=== PATIENT | male | born 1945 | race Caucasian/White ===

== ENCOUNTER 2016-12-23 11:21 | Inpatient (IN) | payer MEDICARE, OTHER ==
[~2016-12-23] VITALS: Ht 195.6 cm; Wt 110.0 kg
[~2016-12-23 11:21] MED LIST: APIX5TAB PO; CELE200C PO; CHOL200024 PO; CYANOCOBALAMIN IM; DILT240C80 PO; FLUT16SP NAS; LEVO100T5 PO; LISI-170 PO; LORA10TA3 PO; MAGNESIUM PO; MIRA50TA PO; OMEGA 3 PO; OMEP40CA6 PO; POTASSIUM PO; TEMA15CA PO; VITA1TAB3 PO; [UNRECOGNIZED DRUG - OTHER] PO
[2016-12-23] MEDS ORDERED: LACTATED RINGERS 1,000 ML IV SCH (11:51)
[2016-12-23] MEDS ORDERED: LIDOCAINE 1%, 2ML SQ PRN (12:00)
[2016-12-23 12:18] VITALS: BP 153/84
[2016-12-23] MEDS ORDERED: BUPIVACAINE/PF 0.5% ONE (12:20)
[2016-12-23] MEDS ORDERED: SCOPOLAMINE PATCH, 1.5MG PATCH.TD72 TD ONE (12:20)
[2016-12-23] MEDS ORDERED: LABETALOL 5MG/ML, 20ML IV PRN (12:30)
[2016-12-23] MEDS ORDERED: OXYcodone 5 MG/5 ML ORAL.SOL UDC PO PRN (12:30)
[2016-12-23] MEDS ORDERED: PROMETHAZINE 25 MG/ML, 1ML IV PRN (12:30)
[2016-12-23] MEDS ORDERED: ONDANSETRON 2MG/ML, 2ML IVPush PRN (12:30)
[2016-12-23] MEDS ORDERED: hydrALAzine 20 MG/ML, 1ML IV PRN (12:30)
[2016-12-23] MEDS ORDERED: ACETAMINOPHEN 325 MG TABLET PO PRN (12:30)
[2016-12-23] MEDS ORDERED: VANCOMYCIN PER PHARMACY MC ONE (13:00)
[2016-12-23 13:04] LABS: BLOOD UREA NITROGEN 18 mg/dL (7-18)
[2016-12-23 13:12] LABS: HEMATOCRIT 47.3 % (39.2-51.8); HEMOGLOBIN 15.1 g/dL (13.7-18.0); WHITE BLOOD COUNT 7.5 x10^3/uL (3.4-10)
[2016-12-23] MEDS ORDERED: FENTANYL PF 500 MCG/10ML ONE (13:16)
[2016-12-23] MEDS ORDERED: HYDROmorphone 1 MG/ML, 1ML ONE ×3 (13:16→16:29)
[2016-12-23] MEDS ORDERED: VANCOMYCIN 1,000 MG ONE (13:17)
[2016-12-23] MEDS ORDERED: ROPIvacaine/PF 0.2%, 20 ML ONE (13:17)
[2016-12-23] MEDS ORDERED: KETOROLAC 60 MG/2 ML ONE (13:17)
[2016-12-23] MEDS ORDERED: TRANEXAMIC ACID 100 MG/ML, 10ML ONE (13:17)
[2016-12-23] MEDS ORDERED: EPINEPHRINE 1 MG/ML, 1ML ONE (13:18)
[2016-12-23] MEDS ORDERED: VANCOMYCIN 2,000 MG in SODIUM CHLORIDE 0.9% 500 ML IV ONE (13:30)
[2016-12-23] MEDS ORDERED: ONDANSETRON 2MG/ML, 2ML ONE (13:47)
[2016-12-23] MEDS ORDERED: CEFAZOLIN 1,000 MG ONE (13:47)
[2016-12-23] MEDS ORDERED: ROCURONIUM 10 MG/ML ONE (13:47)
[2016-12-23] MEDS ORDERED: SUCCINYLCHOLINE 20 MG/ML, 10ML ONE (13:47)
[2016-12-23] MEDS ORDERED: PROPOFOL 10 MG/ML, 20ML ONE (13:47)
[2016-12-23] MEDS ORDERED: FENTANYL PF 100 MCG/2ML ONE (16:15)
[2016-12-23] MEDS ORDERED: OXYcodone 5 MG/5 ML ORAL.SOL UDC ONE (16:16)
[2016-12-23] MEDS: FENTANYL PF 100 MCG/2ML IV PRN ×2 (16:20→16:30)
[2016-12-23] MEDS: HYDROmorphone 1 MG/ML, 1ML IV PRN ×3 (16:25→16:52)
[2016-12-23] MEDS ORDERED: HYDROmorphone 1 MG/ML, 1ML IV PRN (16:30)
[2016-12-23] MEDS ORDERED: DIPHENHYDRAMINE 25 MG CAPSULE PO PRN (16:30)
[2016-12-23] MEDS ORDERED: DIAZEPAM 5 MG TABLET PO PRN (16:30)
[2016-12-23] MEDS ORDERED: PROMETHAZINE 12.5 MG SUPP PR PRN (16:30)
[2016-12-23] MEDS ORDERED: SENNA/DOCUSATE TABLET PO PRN (16:30)
[2016-12-23] MEDS ORDERED: ACETAMINOPHEN 650 MG/20.3 ML UDC PO PRN (16:30)
[2016-12-23] MEDS ORDERED: BISACODYL 10 MG SUPP PR PRN (16:30)
[2016-12-23] MEDS: TRANEXAMIC ACID 1,000 MG in SODIUM CHLORIDE 0.9% 100 ML IVPB SCH (16:30)
[2016-12-23] MEDS ORDERED: ONDANSETRON 2MG/ML, 2ML IV PRN (16:30)
[2016-12-23] MEDS ORDERED: ONDANSETRON 4 MG TABLET PO PRN (16:30)
[2016-12-23] MEDS ORDERED: HYDROcodone/APAP 5/325 TABLET PO PRN (16:30)
[2016-12-23] MEDS ORDERED: LORazepam 1MG TABLET PO PRN (16:30)
[2016-12-23] MEDS ORDERED: SCOPOLAMINE PATCH, 1.5MG PATCH.TD72 TD SCH (18:04)
[2016-12-23] MEDS: D5%-0.45% NACL 1,000 ML IV SCH (18:34)
[2016-12-23] MEDS: OMEGA-3/FISH OIL CAPSULE PO SCH (21:15)
[2016-12-23] MEDS: DOCUSATE 100 MG CAPSULE PO SCH (21:15)
[2016-12-23] MEDS: CEFAZOLIN PMX 1GM/50ML 50 ML IVPB SCH (22:01)
[2016-12-23] MEDS: ZOLPIDEM 5MG TABLET PO PRN (22:01)
[2016-12-23 23:38] VITALS: BP 106/60
[2016-12-24] MEDS: TRANEXAMIC ACID 1,000 MG in SODIUM CHLORIDE 0.9% 100 ML IVPB SCH ×3 (00:29→18:44)
[2016-12-24] MEDS: D5%-0.45% NACL 1,000 ML IV SCH ×3 (04:05→20:45)
[2016-12-24 04:15] VITALS: BP 123/70
[2016-12-24 05:19] LABS: HEMATOCRIT 37.4 % (39.2-51.8); HEMOGLOBIN 12.4 g/dL (13.7-18.0)
[2016-12-24] MEDS: CEFAZOLIN PMX 1GM/50ML 50 ML IVPB SCH (06:03)
[2016-12-24] MEDS: ASPIRIN 81 MG TABLET EC PO SCH ×2 (06:03→18:18)
[2016-12-24] MEDS: LEVOTHYROXINE 100 MCG TABLET PO SCH (06:03)
[2016-12-24 08:13] VITALS: BP 143/73
[2016-12-24] MEDS ORDERED: DILTIAZEM 240 MG CAP.ER.24H PO SCH (09:00)
[2016-12-24] MEDS: OMEGA-3/FISH OIL CAPSULE PO SCH (09:53)
[2016-12-24] MEDS: OXYcodone IR 5MG TABLET PO PRN ×4 (10:03→22:13)
[2016-12-24] MEDS: MULTIVITAMIN 1 TABLET PO SCH (10:05)
[2016-12-24] MEDS: OMEPRAZOLE 20 MG CAPSULE.DR PO SCH (10:05)
[2016-12-24] MEDS: TAMSULOSIN 0.4 MG CAP.ER.24H PO SCH (10:05)
[2016-12-24] MEDS: POTASSIUM CHLORIDE 8 MEQ TABLET.ER PO SCH (10:06)
[2016-12-24] MEDS: MAGNESIUM OXIDE 400 MG TABLET PO SCH (10:06)
[2016-12-24] MEDS: DOCUSATE 100 MG CAPSULE PO SCH ×2 (10:06→20:43)
[2016-12-24] MEDS: CHOLECALCIFEROL 1,000 UNIT TABLET PO SCH (10:06)
[2016-12-24] MEDS: LORATADINE 10 MG TABLET PO SCH (10:06)
[2016-12-24] MEDS: LOSARTAN 25MG TABLET PO SCH (12:37)
[2016-12-24 14:14] VITALS: BP 130/55
[2016-12-24] MEDS ORDERED: ASPIRIN 81 MG TABLET EC PO SCH (18:00)
[2016-12-24 20:09] VITALS: BP 138/63
[2016-12-24] MEDS: DILTIAZEM 240 MG CAP.ER.24H PO SCH (20:43)
[2016-12-24] MEDS: ZOLPIDEM 5MG TABLET PO PRN (22:13)
[2016-12-25 02:07] VITALS: BP 121/64
[2016-12-25] MEDS: OXYcodone IR 5MG TABLET PO PRN ×4 (02:18→23:01)
[2016-12-25 04:42] LABS: HEMATOCRIT 35.7 % (39.2-51.8)
[2016-12-25] MEDS: LEVOTHYROXINE 100 MCG TABLET PO SCH ×2 (05:28→09:00)
[2016-12-25] MEDS: ASPIRIN 81 MG TABLET EC PO SCH ×2 (05:28→18:24)
[2016-12-25] MEDS: D5%-0.45% NACL 1,000 ML IV SCH ×2 (08:07→18:07)
[2016-12-25 08:48] VITALS: BP 109/53
[2016-12-25] MEDS: LORATADINE 10 MG TABLET PO SCH ×2 (09:00→09:10)
[2016-12-25] MEDS: OMEPRAZOLE 20 MG CAPSULE.DR PO SCH ×2 (09:00→09:08)
[2016-12-25] MEDS ORDERED: DILTIAZEM 240 MG CAP.ER.24H PO SCH (09:00)
[2016-12-25] MEDS: TEMPLATE NON-FORMULARY MED. (Mirabegron** (Myrbetriq**) 25 MG) PO SCH (09:00)
[2016-12-25] MEDS: DOCUSATE 100 MG CAPSULE PO SCH ×2 (09:09→20:35)
[2016-12-25] MEDS: TAMSULOSIN 0.4 MG CAP.ER.24H PO SCH (09:09)
[2016-12-25] MEDS: CHOLECALCIFEROL 1,000 UNIT TABLET PO SCH (09:09)
[2016-12-25] MEDS: MAGNESIUM OXIDE 400 MG TABLET PO SCH (09:09)
[2016-12-25] MEDS: LOSARTAN 25MG TABLET PO SCH (09:10)
[2016-12-25] MEDS: POTASSIUM CHLORIDE 8 MEQ TABLET.ER PO SCH (09:10)
[2016-12-25] MEDS: MULTIVITAMIN 1 TABLET PO SCH (09:10)
[2016-12-25 13:27] VITALS: BP 106/56
[2016-12-25] MEDS: MAGNESIUM HYDROXIDE 8%, 30ML UDC PO PRN (18:24)
[2016-12-25 19:01] VITALS: BP_SYST 135; BP_SYST 155; BP_DIAS 64; BP_DIAS 67
[2016-12-25] MEDS: DILTIAZEM 240 MG CAP.ER.24H PO SCH (20:35)
[2016-12-25] MEDS: ZOLPIDEM 5MG TABLET PO PRN (20:35)
[2016-12-26 02:32] VITALS: BP 136/58
[2016-12-26] MEDS: OXYcodone IR 5MG TABLET PO PRN ×2 (03:53→08:22)
[2016-12-26 05:00] LABS: HEMATOCRIT 34.6 % (39.2-51.8); HEMOGLOBIN 11.6 g/dL (13.7-18.0)
[2016-12-26] MEDS: LEVOTHYROXINE 100 MCG TABLET PO SCH ×2 (05:52→09:00)
[2016-12-26] MEDS: ASPIRIN 81 MG TABLET EC PO SCH (05:52)
[2016-12-26 07:15] VITALS: BP 122/51
[2016-12-26] MEDS: MAGNESIUM HYDROXIDE 8%, 30ML UDC PO PRN (08:21)
[2016-12-26] MEDS: POTASSIUM CHLORIDE 8 MEQ TABLET.ER PO SCH (08:24)
[2016-12-26] MEDS: LORATADINE 10 MG TABLET PO SCH ×2 (08:24→09:00)
[2016-12-26] MEDS: DOCUSATE 100 MG CAPSULE PO SCH (08:24)
[2016-12-26] MEDS: CHOLECALCIFEROL 1,000 UNIT TABLET PO SCH (08:24)
[2016-12-26] MEDS: OMEPRAZOLE 20 MG CAPSULE.DR PO SCH ×2 (08:24→09:00)
[2016-12-26] MEDS: TAMSULOSIN 0.4 MG CAP.ER.24H PO SCH (08:24)
[2016-12-26] MEDS: MAGNESIUM OXIDE 400 MG TABLET PO SCH (08:24)
[2016-12-26] MEDS: MULTIVITAMIN 1 TABLET PO SCH (08:24)
[2016-12-26] MEDS: LOSARTAN 25MG TABLET PO SCH (08:25)
[2016-12-26] MEDS ORDERED: OXYC5TAB3 PO (08:29)
[2016-12-26] MEDS ORDERED: ZOLP-413 PO (08:30)
[2016-12-26] MEDS ORDERED: ACET-1600 PO (08:31)
[2016-12-26] MEDS: TEMPLATE NON-FORMULARY MED. (Mirabegron** (Myrbetriq**) 25 MG) PO SCH (09:00)
[2016-12-26] MEDS ORDERED: OXYC5CAP2 PO (09:43)
[2016-12-26] MEDS ORDERED: ZOLP5TAB PO (09:45)
[2016-12-26 10:11] VITALS: BP 106/46
[2016-12-26] MEDS ORDERED: ASPI-496 PO (10:17)
== END 2016-12-26 10:42 | disposition home or self-care (01) | DRG 467 ==
LOC: ORIP 11:21 → 4NOR 17:41
PROVIDERS: ADMIT Orthopaedic Surgery; ATTEND Orthopaedic Surgery
PROC: 0SBD0ZZ Excision of Left Knee Joint, Open Approach (ICD-10-PCS; 2016-12-23)
PROC: 0SWD0JC Revision of Synthetic Substitute in Left Knee Joint, Patellar Surface, Open Approach (ICD-10-PCS; principal; 2016-12-23 13:30)
DX: T84.033A Mechanical loosening of internal left knee prosthetic joint, initial encounter (principal); M25.062 Hemarthrosis, left knee; I48.91 Unspecified atrial fibrillation; T84.83XA Hemorrhage due to internal orthopedic prosthetic devices, implants and grafts, initial encounter; I10 Essential (primary) hypertension; E03.9 Hypothyroidism, unspecified; E55.9 Vitamin D deficiency, unspecified; G47.00 Insomnia, unspecified; M19.90 Unspecified osteoarthritis, unspecified site; Z79.899 Other long term (current) drug therapy; Z88.0 Allergy status to penicillin
CPT/HCPCS: 36415; 80048; 81003; 85014; 85018; 85025; 87081; 93005; C1713; J0171; J0690; J1170; J1885; J2405; J2704; J2795; J3010; J3370; J3490; C1776; J0330; J7040; J7120

== ENCOUNTER 2017-04-10 17:52 | Emergency (ER) | payer MEDICARE, OTHER ==
[~2017-04-10] VITALS: Ht 195.6 cm; Wt 101.3 kg
[~2017-04-10 17:52] MED LIST changes: +ACET-1600 PO; +ASPI-496 PO; +OXYC5CAP2 PO; +OXYC5TAB3 PO; +ZOLP-413 PO; +ZOLP5TAB PO
[2017-04-10 19:54] LABS: HEMATOCRIT 36.8 % (39.2-51.8); HEMOGLOBIN 12.3 g/dL (13.7-18.0); WHITE BLOOD COUNT 7.7 x10^3/uL (3.4-10)
[2017-04-10] MEDS ORDERED: SODIUM CHLORIDE 0.9% 1,000ML IVBOLUS ONE (20:00)
[2017-04-10] MEDS ORDERED: SODIUM CHLORIDE FLUSH 10ML SYR IVF ONE (20:00)
[2017-04-10 20:07] LABS: ASPARTATE AMINO TRANSFERASE 14 U/L (15-37); BLOOD UREA NITROGEN 12 mg/dL (7-18)
[2017-04-10 20:21] LABS: IS PT STATUS REG ER OR PRE ER? YES
[2017-04-10 22:25] VITALS: BP 149/75
[2017-04-10] MEDS ORDERED: OMNIPAQUE 350 MG/ML, 100ML BOTTLE ONE (23:13)
== END 2017-04-10 22:54 | disposition home or self-care (01) ==
LOC: ED 21:21
DX: R07.89 Other chest pain (principal); R06.02 Shortness of breath; R05 Cough; R93.8 Abnormal findings on diagnostic imaging of other specified body structures; E04.2 Nontoxic multinodular goiter; Z96.642 Presence of left artificial hip joint
CPT/HCPCS: 36415; 71275; 80053; 83880; 84484; 85025; 85610; 85730; 93005; 96360; 96361; 99285; J7030; Q9967

== ENCOUNTER → 2017-05-20 | Outpatient (CLI) | payer MEDICARE, OTHER ==
[~2017-05-20] MED LIST changes: +LIDOCAINE 1%, 20ML ONE
== END | disposition home or self-care (01) ==
LOC: RAD 12:39
PROVIDERS: ATTEND Physician Assistant
DX: E04.1 Nontoxic single thyroid nodule (principal); R22.1 Localized swelling, mass and lump, neck
CPT/HCPCS: 76942; 88173; J3490

== ENCOUNTER → 2017-10-13 | Outpatient (CLI) | payer MEDICARE, OTHER ==
[~2017-10-13] MED LIST changes: -LIDOCAINE 1%, 20ML ONE
== END | disposition home or self-care (01) ==
LOC: CFH 11:16
PROVIDERS: ATTEND Internal Medicine
DX: E04.2 Nontoxic multinodular goiter (principal); R05 Cough; G47.30 Sleep apnea, unspecified; R53.83 Other fatigue; E88.81 Metabolic syndrome and other insulin resistance; E78.2 Mixed hyperlipidemia; E03.9 Hypothyroidism, unspecified; R82.90 Unspecified abnormal findings in urine; E83.119 Hemochromatosis, unspecified; G89.29 Other chronic pain; I10 Essential (primary) hypertension; R93.8 Abnormal findings on diagnostic imaging of other specified body structures; K21.9 Gastro-esophageal reflux disease without esophagitis; C61 Malignant neoplasm of prostate; I48.91 Unspecified atrial fibrillation; L98.9 Disorder of the skin and subcutaneous tissue, unspecified; M79.671 Pain in right foot; K80.20 Calculus of gallbladder without cholecystitis without obstruction; M25.562 Pain in left knee
CPT/HCPCS: 76536

== ENCOUNTER → 2019-10-09 | Outpatient (CLI) | payer MEDICARE, OTHER ==
[~2019-10-09] MED LIST changes: -FLUT16SP NAS; +FLUT16SP24 NAS; +LORA-247 PO; -LORA10TA3 PO; +OMEP40CA42 PO; -OMEP40CA6 PO
== END | disposition home or self-care (01) ==
LOC: CVU 10:32
PROVIDERS: ATTEND Internal Medicine Cardiovascular Disease
DX: I08.8 Other rheumatic multiple valve diseases (principal)
CPT/HCPCS: 93306; 93356

== ENCOUNTER 2019-11-03 17:08 | Emergency (ER) | payer MEDICARE, OTHER ==
[~2019-11-03] VITALS: Ht 195.6 cm; Wt 102.0 kg
[2019-11-03 17:13] VITALS: BP 143/71
--- NOTE | 2019-11-03 18:50 | NUR ---
PT HAS CO HEADACHE STARTED THIS AM, TOOK 2 TYLENOL AT 4 PM. DENIES VISION CHANGES. DNEIES N/V APPEARS WELL, NO SOB
[2019-11-03 19:43] LABS: BASOPHILS # (AUTO) 0.06 x10^3/uL (0-0.1); BASOPHILS % (AUTO) 1 % (0-1); EOSINOPHILS % (AUTO) 1 % (1-7); LYMPHOCYTES # (AUTO) 3.97 x10^3/uL (1-3.4); LYMPHOCYTES % (AUTO) 42 % (22-44); MD NO; MEAN CORPUSCULAR HEMOGLOBIN 31.9 pg (27.5-34.5); MEAN CORPUSCULAR HGB CONC 33.2 g/dL (33.2-36.2); MEAN CORPUSCULAR VOLUME 96.3 fL (81-97); MEAN PLATELET VOLUME 8.5 fL (7.4-10.4); MONOCYTES # (AUTO) 0.75 x10^3/uL (0.2-0.8); MONOCYTES % (AUTO) 8 % (2-9); NEUTROPHILS # (AUTO) 4.49 x10^3/uL (1.8-6.8); NEUTROPHILS % (AUTO) 48 % (42-75); PLATELET COUNT 223 x10^3/uL (130-400); RED BLOOD COUNT 4.64 x10^6/uL (4.38-5.82); RED CELL DISTRIBUTION WIDTH 14.1 % (9.4-14.8)
[2019-11-03 19:45] LABS: ALANINE AMINOTRANSFERASE 102 U/L (12-78); ALBUMIN 3.9 g/dL (3.4-5.0); ANION GAP 5 mmol/L (5-15); CALCIUM 8.5 mg/dL (8.5-10.1); CHLORIDE 110 mmol/L (98-107); CREATININE 1.03 mg/dL (0.7-1.3)
[2019-11-03 19:47] LABS: ALKALINE PHOSPHATASE 93 U/L (45-117); BILIRUBIN,TOTAL 0.4 mg/dL (0.2-1.0); TOTAL PROTEIN 6.9 g/dL (6.4-8.2)
== END 2019-11-03 20:40 ==
LOC: ED 17:38
DX: B34.9 Viral infection, unspecified (principal); Z20.828 Contact with and (suspected) exposure to other viral communicable diseases; R51 Headache; Z85.46 Personal history of malignant neoplasm of prostate; Z96.643 Presence of artificial hip joint, bilateral; Z96.653 Presence of artificial knee joint, bilateral
CPT/HCPCS: 36415; 80053; 85025; 87635; 99283